=== PATIENT | male | born 1950 | race Caucasian/White ===

== ENCOUNTER 2024-04-27 17:15 | Emergency (ER) | payer OTHER ==
[~2024-04-27] VITALS: Ht 167.6 cm; Wt 68.2 kg
[2024-04-27 17:33] VITALS: BP 138/81; PULSE 70; RESP 18; TEMP 97.9; O2SAT 99
== END 2024-04-27 23:22 | disposition home or self-care (01) ==
LOC: EMS 17:27
DX: M72.0 Palmar fascial fibromatosis [Dupuytren] (principal)
CPT/HCPCS: 99283